=== PATIENT | male | born 1970 | race African-American/Black ===

== ENCOUNTER 2017-09-28 12:47 | Emergency (ER) | payer MEDICAID ==
[~2017-09-28] VITALS: Ht 180.3 cm; Wt 82.0 kg
[2017-09-28] MEDS ORDERED: GABA-529 PO (14:19)
[2017-09-28] MEDS ORDERED: ATEN-42 PO (14:34)
[2017-09-28] MEDS ORDERED: HALO10TA13 PO (14:34)
[2017-09-28] MEDS ORDERED: FOLI-43 PO (14:34)
[2017-09-28] MEDS ORDERED: BENZ1TAB7 PO (14:34)
[2017-09-28] MEDS ORDERED: TRAZ-132 PO (14:34)
[2017-09-28] MEDS ORDERED: AMLO10TA80 PO (14:34)
[2017-09-28] MEDS ORDERED: HYDR25TA PO (14:34)
[2017-09-28] MEDS ORDERED: GEMF600T3 PO (14:34)
[2017-09-28] MEDS ORDERED: FERR325T6 PO (14:34)
[2017-09-28] MEDS ORDERED: HYDROCHLOROTHIAZIDE 25MG TABLET PO ONE (16:00)
[2017-09-28] MEDS ORDERED: AMLODIPINE 10MG TABLET PO ONE (16:00)
[2017-09-28] MEDS ORDERED: ATENOLOL 25MG TABLET PO ONE (17:30)
[2017-09-28 19:15] VITALS: BP 162/108
== END 2017-09-28 19:30 | disposition home or self-care (01) ==
LOC: ER 13:35
DX: S82.392A Other fracture of lower end of left tibia, initial encounter for closed fracture (principal); S92.001A Unspecified fracture of right calcaneus, initial encounter for closed fracture; F20.9 Schizophrenia, unspecified; I10 Essential (primary) hypertension; F17.210 Nicotine dependence, cigarettes, uncomplicated; W17.89XA Other fall from one level to another, initial encounter; Y93.89 Activity, other specified; Y92.89 Other specified places as the place of occurrence of the external cause
CPT/HCPCS: 99284